=== PATIENT | female | born 1960 ===

== ENCOUNTER 2019-05-07 09:32 | Emergency (ER) | payer BC, OTHER ==
[2019-05-07 09:41] VITALS: BP 158/110
--- NOTE | 2019-05-07 09:56 | UC ---
Back Pain HPI - HPI Summary HPI Summary: patient slipped on slippery steps adn fell onto left side of back approximately 30 min ago. was able to stand up up has L posterior rib pain denies difficulty breathing - History of Current Complaint Chief Complaint: UCTrauma Stated Complaint: RIB INJURY Time Seen by Provider: 05/07/19 09:43 Hx Obtained From: Patient, Family/Business Support Manager ?: No Onset/Duration: Sudden Onset Timing: Constant Severity Initially: Severe Severity Currently: Severe Pain Intensity: 10 Back Pain: Is Discrete @ - L posterior ribs Character: Sharp, Throbbing Aggravating Factor(s): Movement, Walking Alleviating Factor(s): Rest, Cold - Allergies/Home Medications Allergies/Adverse Reactions: Allergies Allergy/AdvReac Type Severity Reaction Status Date / Time codeine Allergy GI Upset Verified 05/07/19 09:37 PMH/Surg Hx/FS Hx/Imm Hx Previously Healthy: Yes Endocrine History: Dyslipidemia GI/ History: Gastroesophageal Reflux - Surgical History Surgical History: Yes Surgery Procedure, Year, and Place: DEVIATED NASAL SEPTUM [place]. 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 Negative: Shortness Of Breath, Cough Cardiovascular: Positive: Negative. Negative: Chest Pain Gastrointestinal: Positive: Negative. Negative: Abdominal Pain Musculoskeletal: Negative: Decreased ROM Neurological: Positive: Negative. Negative: Headache Psychological: Positive: Negative Is Patient Immunocompromised?: No Physical Exam Triage Information Reviewed: Yes Appearance: Well-Appearing, Well-Nourished, Pain Distress Vital Signs: Initial Vital Signs Temp 98.8 F 05/07/19 09:38 Pulse 80 05/07/19 09:38 Resp 17 05/07/19 09:38 BP 158/110 05/07/19 09:38 Pulse Ox 98 05/07/19 09:38 Vital Signs Reviewed: Yes Neck exam: Normal Neck: Positive: Supple, Nontender Respiratory Exam: Normal Respiratory: Positive: Lungs clear, No respiratory distress, Other: - pain L posterior ribs 8-10 Cardiovascular Exam: Normal Cardiovascular: Positive: RRR, No Murmur Musculoskeletal Exam: Normal Neurological Exam: Normal Neurological: Positive: Alert Psychological Exam: Normal Skin Exam: Normal Diagnostics - Radiology No standard instances Radiology Interpretation Completed By: Radiologist - non-displaced fracture Left lateral 10th rib Back Pain Course/Dx - Differential Dx/Diagnosis Differential Diagnosis/HQI/PQRI: Fracture, Strain, Other - contusion Provider Diagnosis: Left rib fracture Discharge ED - Sign-Out/Discharge Documenting (check all that apply): Patient Departure All imaging exams completed and their final reports reviewed: Yes - non- displaced fracture Left lateral 10th rib - Discharge Plan Condition: Stable Disposition: HOME Patient Education Materials: Rib Fracture (ED) Referrals: Jeanne Pace MD [Primary Care Provider] - 2 Days (recheck blood pressure and rib pain ) Additional Instructions: rest, apply ice to area of pain use ibuprofen 600-800mg every 6 hours with food as needed for pain report to ER if you experience shortness of breath or chest pain at any time - Billing Disposition and Condition Condition: STABLE Disposition: Home
== END 2019-05-07 11:03 | disposition home or self-care (01) ==
LOC: UCEAST 09:32
DX: S22.32XA Fracture of one rib, left side, initial encounter for closed fracture (principal); Z88.5 Allergy status to narcotic agent; W10.9XXA Fall (on) (from) unspecified stairs and steps, initial encounter; Y92.9 Unspecified place or not applicable
CPT/HCPCS: 99201; G0463